=== PATIENT | female | born 1955 | race Caucasian/White ===

== ENCOUNTER → 2020-01-30 | Emergency (ER) | payer OTHER ==
[~2020-01-30] VITALS: Ht 162.6 cm; Wt 80.0 kg
[~2020-01-30] MED LIST: HYDR-3965 PO; HYDROcodone/acetaminophen 5mg/325mg tablet PO ONE
[2020-01-30 11:06] VITALS: BP 139/98
== END | disposition home or self-care (01) ==
LOC: ER 10:59
DX: S52.125A Nondisplaced fracture of head of left radius, initial encounter for closed fracture (principal); W01.0XXA Fall on same level from slipping, tripping and stumbling without subsequent striking against object, initial encounter; Y93.01 Activity, walking, marching and hiking; Y92.89 Other specified places as the place of occurrence of the external cause; Y99.9 Unspecified external cause status
CPT/HCPCS: 29105; 73080; 73110; 99284

== ENCOUNTER 2020-12-01 03:57 | Emergency (ER) | payer MEDICAID ==
[~2020-12-01] VITALS: Ht 165.1 cm; Wt 90.0 kg
[2020-12-01] MEDS ORDERED: acetaminophen 325mg tablet PO ONE (04:20)
[2020-12-01] MEDS ORDERED: diphenhydrAMINE 50 mg/ml inj IV ONE (04:20)
[2020-12-01] MEDS ORDERED: proCHLORperazine 10 MG/2 ml inj IV ONE (04:20)
[2020-12-01] MEDS ORDERED: normal saline 1000ml 1,000 ML IV ONE (04:20)
[2020-12-01 04:55] VITALS: BP 140/90
[2020-12-01 05:14] LABS: BASOPHILS # (AUTO) 0.1 X10'3 (0-0.2); BASOPHILS % (AUTO) 0.8 % (0-1); EOSINOPHILS # (AUTO) 0.2 X10'3 (0-0.9); EOSINOPHILS % (AUTO) 2.2 % (0-6); HEMATOCRIT 36.4 % (35.0-45.0); HEMOGLOBIN 11.9 g/dl (12.0-16.0); LYMPHOCYTES # (AUTO) 1.2 X10'3 (1.1-4.8); MEAN CORPUSCULAR HEMOGLOBIN 28.1 PG (27.0-31.0); MEAN CORPUSCULAR HGB CONC 32.7 g/dL (33.0-36.5); MEAN CORPUSCULAR VOLUME 85.9 FL (78-98); MEAN PLATELET VOLUME 8.4 FL (7.4-10.4); MONOCYTES # (AUTO) 0.6 X10'3 (0-0.9); MONOCYTES % (AUTO) 7.5 % (2-12); NEUTROPHILS # (AUTO) 5.7 X10'3 (1.8-7.7); NEUTROPHILS % (AUTO) 74.5 % (42-75); PLATELET COUNT 325 X10'3 (140-440); RED BLOOD COUNT 4.24 X10'6 (4.20-5.60); RED CELL DISTRIBUTION WIDTH 15.3 % (11.5-14.5); WHITE BLOOD COUNT 7.7 X10'3 (4.5-11.0)
[2020-12-01 05:23] LABS: ALANINE AMINOTRANSFERASE 23 U/L (12-78); ALBUMIN 3.8 G/DL (3.4-5.0); ALKALINE PHOSPHATASE 92 IU/L (46-116); ANION GAP 13 (8-16); ASPARTATE AMINO TRANSFERASE 11 U/L (10-37); BILIRUBIN,TOTAL 0.3 MG/DL (0.1-1.0); BLOOD UREA NITROGEN 16 MG/DL (7-18); CALCIUM 9.3 MG/DL (8.5-10.1); CHLORIDE 106 MMOL/L (99-107); CREATININE 0.64 MG/DL (0.40-0.90); GLUCOSE 129 MG/DL (70-104); POTASSIUM 3.9 MMOL/L (3.5-5.1); SODIUM 143 MMOL/L (135-145); TOTAL CARBON DIOXIDE 23.9 MMOL/L (24-32); TOTAL PROTEIN 7.7 G/DL (6.4-8.2); eGFR > 90 ML/MIN
== END 2020-12-01 06:03 | disposition home or self-care (01) ==
LOC: ER 03:57
DX: R51.9 Headache, unspecified (principal); R11.0 Nausea; R10.9 Unspecified abdominal pain
CPT/HCPCS: 36415; 70450; 80053; 85025; 96361; 96374; 96375; 99284; J0780; J1200; J7030